=== PATIENT | male | born 1955 | race Two or more races ===

== ENCOUNTER 2019-04-20 04:14 | Inpatient (IN) | payer OTHER ==
[~2019-04-20] VITALS: Ht 167.6 cm; Wt 74.4 kg
[2019-04-20] MEDS ORDERED: ASPIRIN 325 MG TABLET PO ONE (04:30)
[2019-04-20] MEDS ORDERED: NITROGLYCERIN 0.4 MG/TAB BOTTLE SL ONE (04:30)
[2019-04-20] MEDS ORDERED: ASPIRIN 325 MG TABLET ONE (04:32)
[2019-04-20] MEDS ORDERED: NITROGLYCERIN 0.4 MG/TAB BOTTLE ONE ×2 (04:32→16:37)
--- NOTE | 2019-04-20 04:35 | NUR ---
BLOOD COLLECTED AND SENT TO LAB FOR TESTING
--- NOTE | 2019-04-20 04:36 | NUR ---
PT CAME TO ER BED 9 BIB [facility] AND IN CUSTODY C/O CHEST PAIN. 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 PAIN IS CURRENTLY A 10/04. PATIENT ENDORSES SOB. AAOX4. BREATHING EVENLY AND UNLABORED. CONNECTED TO THE LITHOGRAPHIC RETOUCHER APPRENTICE.
[2019-04-20 04:39] LABS: BASOPHILS # (AUTO) 0.1 /CMM (0.0-0.2); BASOPHILS % (AUTO) 0.8 % (0.0-2.0); EOSINOPHILS % (AUTO) 0.5 % (0.0-6.0); HEMATOCRIT 48 % (39-51); HEMOGLOBIN 16.5 g/dL (13.5-17.5); LYMPHOCYTES # (AUTO) 1.8 /CMM (0.8-4.8); LYMPHOCYTES % (AUTO) 25.1 % (20.0-44.0); MEAN CORPUSCULAR HGB CONC 34 g/dl (31.0-36.0); MEAN CORPUSCULAR VOLUME 101 fL (80-96); MONOCYTES # (AUTO) 0.7 /CMM (0.1-1.30); MONOCYTES % (AUTO) 9.2 % (2.0-12.0); NEUTROPHILS # (AUTO) 4.6 /CMM (1.8-8.9); NEUTROPHILS % (AUTO) 64.4 % (43.0-81.0); PLATELET COUNT (AUTO) 156 /CMM (150-450); RED BLOOD CELL COUNT(AUTO) 4.74 MIL/uL (4.5-6.0); WHITE BLOOD COUNT (AUTO) 7.1 K/uL (4.3-11.0)
[2019-04-20 04:46] LABS: CALCIUM, SERUM 8.9 mg/dL (8.5-10.1); CARBON DIOXIDE 22 mmol/L (21-32); CHLORIDE 103 mmol/L (98-107); CREATININE 0.9 mg/dL (0.6-1.3); GLUCOSE 123 mg/dL (74-106); POTASSIUM 4.1 mmol/L (3.5-5.1); SODIUM SERUM 139 mmol/L (136-145); UREA NITROGEN, BLOOD 15 mg/dL (7-18)
[2019-04-20 04:59] LABS: ALANINE AMINOTRANSFERASE 44 U/L (12-78); ALBUMIN 3.2 g/dL (3.4-5.0); ALKALINE PHOSPHATASE 85 U/L (46-116); ASPARTATE AMINOTRANSFERASE 39 U/L (15-37); B-TYPE NATRIURETIC PEPTIDE 651 PG/ML (0-125); BILIRUBIN,DIRECT 0.1 mg/dL (0.0-0.2); BILIRUBIN,TOTAL 0.7 mg/dL (0.2-1.0); TOTAL PROTEIN, SERUM 7.3 g/dL (6.4-8.2)
--- NOTE | 2019-04-20 05:56 | NUR ---
REPORT GIVEN TO MONIKA FULLER FOR KAY.
[2019-04-20 06:30] VITALS: BP 138/71
--- NOTE | 2019-04-20 07:00 | NUR ---
RN NOTE: PATIENT ARRIVED TO UNIT VIA ACLS PROTOCOL AND ACCOMPANIED BY AN [employer] OFFICER. PATIENT IS AAOX4. NO RESPIRATORY DISTRESS. NO C/O CHEST PAIN AT THIS TIME. PATIENT WISHES TO BE FULL CODE. DR. MOODY MADE AWARE. PLACED ON BOTTOM IRONER SHOWING CONTROLLED AFIB, HR 80-90s. V/S TAKEN. SKIN IS WARM AND INTACT. PER PATIENT, HE HAS NOT BEEN TAKING ANY MEDICATIONS. STILL AWAITING FOR ADMITTING ORDERS. DR. MOODY MADE AWARE OF PATIENT'S ARRIVAL TO UNIT. SAFETY PRECAUTIONS IMPLEMENTED. BED LOCKED AND IN LOWEST POSITION. [employer] OFFICER REMAINS AT BEDSIDE. CALL LIGHT PLACED WITHIN REACH. ENDORSED TO AM SHIFT NURSE FOR CONTINUITY OF CARE AND PER ADMISSION PROTOCOL.
[2019-04-20 08:00] VITALS: BP 157/98
[2019-04-20] MEDS ORDERED: ZOLPIDEM TARTRATE 5 MG TABLET PO PRN (10:30)
[2019-04-20] MEDS ORDERED: HYDROCODONE/APAP 5/325MG 1 EACH TABLET PO PRN (10:30)
[2019-04-20] MEDS ORDERED: ONDANSETRON HCL/PF 4 MG/2 ML VIAL IVP PRN (10:30)
[2019-04-20] MEDS ORDERED: ACETAMINOPHEN 325 MG TABLET PO PRN (10:30)
[2019-04-20] MEDS ORDERED: Z GUARD REMEDY 2 OZ OINT TP PRN (10:30)
[2019-04-20] MEDS ORDERED: MAGNESIUM HYDROXIDE 30 ML UDC PO PRN (10:30)
[2019-04-20] MEDS: METOPROLOL TARTRATE 25 MG TABLET PO SCH ×2 (11:22→21:00)
[2019-04-20 11:30] LABS: MAGNESIUM 2.2 mg/dL (1.8-2.4); PHOSPHORUS 4.5 mg/dL (2.5-4.9)
[2019-04-20 12:00] VITALS: BP_SYST 153; BP_SYST 163; BP_DIAS 102; BP_DIAS 84
[2019-04-20 12:15] VITALS: BP 153/84
[2019-04-20 12:52] LABS: THYROID STIMULATING HORMONE 0.931 uIU/mL (0.358-3.74)
[2019-04-20 16:00] VITALS: BP 141/86
[2019-04-20] MEDS ORDERED: IOHEXOL-350 100 ML VIAL IV ONE (16:10)
[2019-04-20] MEDS ORDERED: CT SWABBABLE VALVE TRANS SET 1 EA INFUS.SET MC ONE (16:10)
[2019-04-20] MEDS ORDERED: IV NS 0.9% 250 ML IV ONE (16:10)
[2019-04-20 16:25] LABS: APPEARANCE,URINE CLEAR (CLEAR); BILIRUBIN,URINE NEGATIVE (NEGATIVE); BLOOD, URINE NEGATIVE Ery/uL (NEGATIVE); COLOR,URINE DARK YELLO (YELLOW); KETONES,URINE NEGATIVE (NEGATIVE); LEUKOCYTE ESTERASE ,URINE NEGATIVE (NEGATIVE); NITRITE, URINE NEGATIVE (NEGATIVE); PROTEIN,URINE NEGATIVE (NEGATIVE); UGLUCOSE NEGATIVE (NEGATIVE); UROBILINOGEN,URINE 0.2 EU/dL (0.2)
--- NOTE | 2019-04-20 16:30 | NUR ---
pt is at [facility], alert, follows commands, A fib controlled, procedure explained, pt verbalized understanding, [employer] at the bedside, v/s stable, no pain.
[2019-04-20] MEDS ORDERED: METOPROLOL TARTRATE INJ 5 MG/5 ML AMPUL ONE (16:38)
--- NOTE | 2019-04-20 17:05 | NUR ---
the procedure is over, pt tolerated it well, Afib controlled, v/s stable, no pain, a/o x4, follows commands.
--- NOTE | 2019-04-20 19:25 | NUR ---
TELE/RN NOTES Patient received in bed, awake A/O x4, denies any pain or discomfort at this time. In no acute distress, breathing even and unlabored. No SOB noted. On Room Air saturating 98%. A-fib, controlled on monitor with rate 55 at this time. IV sites, intact, patent, with no S/S of infection, infiltration. Safety maintained, bed at the lowest locked position. Call light within reach. [employer] at bed side. Will continue to monitor resident as per plan if care.
[2019-04-20 20:00] VITALS: BP 140/82
--- NOTE | 2019-04-20 21:00 | NUR ---
Lopressor not given due to low HR 52
[2019-04-21] VITALS: BP 106/63
--- NOTE | 2019-04-21 02:38 | NUR ---
Patient has episodes of bradycardia, drops down to 40's then quickly come back to normal between 60's to 70's . Afin on monitor. In no acute distress, further assess patient denies any pain or discomfort. Alert and oriented to his base line. Breathing even and unlabored. Skin warm to touch, BP 134/74. HR 62, R 16, T97.5, O2 sat 98%, Pain 0/10. Call Dr Ken Gomez, relayed patient condition, VS with order to continue to monitor. Will continue to monitor patient closely.
[2019-04-21 04:00] VITALS: BP 138/82
--- NOTE | 2019-04-21 07:10 | NUR ---
TELE/RN NOTES Patient remained in bed, awake A/O x4, denies any pain or discomfort at this time. In no acute distress, breathing even and unlabored. No SOB noted. On Room Air saturating 98%. A-fib, controlled on monitor with rate 61 at this time. IV sites, intact, patent, with no S/S of infection, infiltration. Safety maintained, bed at the lowest locked position. Call light within reach. [employer] at bed side. Endorse to AM shift nurse for KAY.
[2019-04-21 07:49] LABS: ALANINE AMINOTRANSFERASE 40 U/L (12-78); ALKALINE PHOSPHATASE 72 U/L (46-116); ASPARTATE AMINOTRANSFERASE 24 U/L (15-37); BILIRUBIN,TOTAL 0.9 mg/dL (0.2-1.0); CALCIUM, SERUM 8.7 mg/dL (8.5-10.1); CARBON DIOXIDE 27 mmol/L (21-32); CHLORIDE 103 mmol/L (98-107); CREATININE 1.1 mg/dL (0.6-1.3); GLUCOSE 100 mg/dL (74-106); MAGNESIUM 2.2 mg/dL (1.8-2.4); PHOSPHORUS 3.5 mg/dL (2.5-4.9); POTASSIUM 3.5 mmol/L (3.5-5.1); SODIUM SERUM 138 mmol/L (136-145); TOTAL PROTEIN, SERUM 6.7 g/dL (6.4-8.2); UREA NITROGEN, BLOOD 14 mg/dL (7-18)
[2019-04-21 07:50] LABS: BASOPHILS # (AUTO) 0.1 /CMM (0.0-0.2); BASOPHILS % (AUTO) 0.7 % (0.0-2.0); EOSINOPHILS % (AUTO) 2.1 % (0.0-6.0); HEMATOCRIT 47 % (39-51); LYMPHOCYTES # (AUTO) 2.7 /CMM (0.8-4.8); LYMPHOCYTES % (AUTO) 32.6 % (20.0-44.0); MEAN CORPUSCULAR HGB CONC 35 g/dl (31.0-36.0); MEAN CORPUSCULAR VOLUME 101 fL (80-96); MONOCYTES # (AUTO) 0.7 /CMM (0.1-1.30); MONOCYTES % (AUTO) 8.6 % (2.0-12.0); NEUTROPHILS # (AUTO) 4.7 /CMM (1.8-8.9); PLATELET COUNT (AUTO) 147 /CMM (150-450); RED BLOOD CELL COUNT(AUTO) 4.59 MIL/uL (4.5-6.0); WHITE BLOOD COUNT (AUTO) 8.3 K/uL (4.3-11.0)
[2019-04-21 08:00] VITALS: BP 171/99
[2019-04-21] MEDS: METOPROLOL TARTRATE 25 MG TABLET PO SCH (08:23)
[2019-04-21] MEDS ORDERED: ASPIRIN 81 MG TAB.CHEW PO SCH (09:00)
[2019-04-21 12:00] VITALS: BP 154/83
[2019-04-21] MEDS ORDERED: ASPI-1169 PO (12:18)
[2019-04-21] MEDS ORDERED: METO25TA20 PO (12:18)
[2019-04-21] MEDS ORDERED: ALLO100T PO (13:26)
[2019-04-21] MEDS ORDERED: PANT40TA2 PO (13:26)
[2019-04-21] MEDS ORDERED: INFLUENZA VACCINE 2019-20 0.5 ML DISP.SYRIN IM ONE (13:30)
[2019-04-21] MEDS ORDERED: PNEUMOCOCCAL 23-VAL P-SAC VAC 0.5 ML VIAL SQ ONE (13:30)
[2019-04-21] MEDS ORDERED: PANTOPRAZOLE 40 MG TABLET.DR PO SCH (13:30)
[2019-04-21] MEDS ORDERED: ALLOPURINOL 100 MG TABLET PO SCH (13:30)
--- NOTE | 2019-04-21 15:00 | NUR ---
RN NOTE PT RELEASED WITH [employer] TO ASSISTED, IN STABLE CONDITION, DISCHARGE INSTRUCTIONS GIVEN TO PT, TEACHING DONE TO PT, PT VERBALIZED UNDERSTANDING, PAPERS SIGNED, BELONGINGS LIST SIGNED AND PROVIDED TO PT, IV REMOVED, ID BAND REMOVED. EXIT CARE DONE. COPIES LEFT IN THE CHART. PNA/FLU VACCINE GIVEN.
[2019-04-22] MEDS ORDERED: PANTOPRAZOLE 40 MG TABLET.DR PO SCH (07:30)
[2019-04-23 12:07] LABS: *SPE ALBUMIN 3.4 g/dL (2.9-4.4); *SPE ALPHA-1-GLOBULIN 0.2 g/dL (0.0-0.4); *SPE ALPHA-2-GLOBULIN 0.8 g/dL (0.4-1.0); *SPE BETA GLOBULIN 1.1 g/dL (0.7-1.3); *SPE GLOBULIN, TOTAL 3.3 g/dL (2.2-3.9); *SPE M-SPIKE Not Observed g/dL (Not Observed); *SPEGAMMA GLOBULIN 1.1 g/dL (0.4-1.8)
== END 2019-04-21 15:03 | DRG 309 ==
LOC: ER 04:15 → TELE1 05:32 → MEDSG1 04-21 11:52
PROVIDERS: ADMIT Nurse Practitioner Acute Care; ATTEND Nurse Practitioner Acute Care
DX: I48.91 Unspecified atrial fibrillation (principal); D68.69 Other thrombophilia; R07.9 Chest pain, unspecified; E88.09 Other disorders of plasma-protein metabolism, not elsewhere classified; I10 Essential (primary) hypertension; R29.6 Repeated falls; M10.9 Gout, unspecified; F17.210 Nicotine dependence, cigarettes, uncomplicated; Z91.14 Patient's other noncompliance with medication regimen; F10.10 Alcohol abuse, uncomplicated
CPT/HCPCS: 36415; 71045-TC; 75574; 80048-TC; 80053-TC; 80061-TC; 80076-TC; 80305; 81000-TC; 82728-TC; 83540-TC; 83735-TC; 83880; 84100-TC; 84155; 84165; 84439-TC; 84443-TC; 84484-TC; 84550-TC; 85025-TC; 87081-TC; 90732; 93307-TC; A6253; G0378; J3490; J7050; Q2036; Q9967